=== PATIENT | female | born 1990 | race African-American/Black ===

== ENCOUNTER 2016-12-04 19:06 | Emergency (ER) | payer OTHER ==
[~2016-12-04] VITALS: Ht 165.1 cm; Wt 73.9 kg
[2016-12-04 19:09] VITALS: BP 124/74
[2016-12-04] MEDS ORDERED: ACTICIN 5% CREA60 G1 TOP (19:37)
== END 2016-12-04 19:52 | disposition home or self-care (01) ==
LOC: ER 19:06
DX: B86 Scabies (principal); F12.10 Cannabis abuse, uncomplicated

== ENCOUNTER 2019-03-11 03:01 | Emergency (ER) | payer OTHER ==
[~2019-03-11] VITALS: Ht 165.1 cm; Wt 72.6 kg
[~2019-03-11 03:01] MED LIST: ACTICIN 5% CREA60 G1 TOP
[2019-03-11] MEDS ORDERED: NOHOMEMEDICATIONS (03:10)
[2019-03-11] MEDS ORDERED: BACTRIM DS TAB1 EACH PO (04:05)
[2019-03-11 04:17] VITALS: BP 122/65
== END 2019-03-11 04:20 | disposition home or self-care (01) ==
LOC: ER 03:01
DX: K61.0 Anal abscess (principal); Z88.8 Allergy status to other drugs, medicaments and biological substances

== ENCOUNTER 2020-07-19 16:20 | Emergency (ER) | payer OTHER ==
[~2020-07-19] VITALS: Ht 177.8 cm; Wt 81.7 kg
[~2020-07-19 16:20] MED LIST changes: +BACTRIM DS TAB1 EACH PO; +NOHOMEMEDICATIONS
[2020-07-19 18:08] LABS: URINE BILIRUBIN NEGATIVE (Negative); URINE BLOOD 2+ (Negative); URINE CLARITY CLEAR; URINE COLOR YELLOW; URINE GLUCOSE-RANDOM* NEGATIVE (Negative); URINE KETONES 1+ (Negative); URINE LEUKOCYTES-REFLEX NEGATIVE (Negative); URINE NITRITE-REFLEX NEGATIVE (Negative); URINE PROTEIN (DIPSTICK) NEGATIVE (Negative); URINE UROBILINOGEN 0.2 E.U./dl (0.2-1.0)
[2020-07-19 18:24] LABS: BACTERIA-REFLEX >30 Many /HPF (None Seen); MUCUS 0-3 Light strn/LPF (None Seen); SQUAMOUS >10 Many /LPF (0-3); URINE RBC 3-10 Few /HPF (0-2); URINE WBC-REFLEX 0-5 Rare /HPF (0-5)
[2020-07-19 18:25] LABS: CASTS None Seen /LPF (None Seen); CRYSTALS None Seen /LPF (None Seen)
[2020-07-19] MEDS ORDERED: ROBAXIN 750 MG750 MG PO (19:49)
[2020-07-19 20:04] VITALS: BP 121/80
== END 2020-07-19 20:06 | disposition home or self-care (01) ==
LOC: ER 16:20
PROVIDERS: Nurse Practitioner Family
DX: S09.90XA Unspecified injury of head, initial encounter (principal); M54.5 Low back pain; Z79.899 Other long term (current) drug therapy; Z88.8 Allergy status to other drugs, medicaments and biological substances; V43.52XA Car driver injured in collision with other type car in traffic accident, initial encounter; Y93.89 Activity, other specified; Y92.89 Other specified places as the place of occurrence of the external cause; Y99.8 Other external cause status